=== PATIENT | female | born 1980 | race African-American/Black ===

== ENCOUNTER 2016-10-06 12:42 | Emergency (ER) | payer SELFPAY ==
[~2016-10-06] VITALS: Ht 177.8 cm; Wt 90.4 kg
[2016-10-06 13:26] VITALS: BP 132/68
[2016-10-06 17:07] LABS: CARBOXY HGB 2.5 % (0-5); MIXED VENOUS O2 SATURATION 81.2 % (65-75)
== END 2016-10-06 18:27 | disposition home or self-care (01) ==
LOC: EME 12:42
PROVIDERS: Physician Assistant Medical
DX: J70.5 Respiratory conditions due to smoke inhalation (principal); X02.1XXA Exposure to smoke in controlled fire in building or structure, initial encounter; Y92.009 Unspecified place in unspecified non-institutional (private) residence as the place of occurrence of the external cause
CPT/HCPCS: 71020; 82810; 99281; 99283